=== PATIENT | male | born 2000 ===

== ENCOUNTER 2020-03-24 18:26 | Emergency (ER) | payer MEDICAID ==
[2020-03-24] MEDS ORDERED: Ibuprofen 600 MG Tab PO ONE (18:27)
[2020-03-24] MEDS ORDERED: Ibuprofen 600 MG Tab ONE (20:31)
--- NOTE | 2020-03-24 20:36 | EDM.PDOC ---
ED HPI GENERAL MEDICAL PROBLEM - General Chief Complaint: Back Pain or Injury Stated Complaint: SEVERE BACK PAIN, MAKING IT HARD TO BREATHE Time Seen by Provider: 03/24/20 19:45 - History of Present Illness INITIAL COMMENTS - FREE TEXT/NARRATIVE: ED with c/o low back pain today, denied injury, worse with movement, has tried tylenol, ice and heat without improvement. denies prior injury. No radiation of pain. Recent admission to [facility] for detox. Last ETOH Saturday. Admitted 1/2 gallon daily at least for past 2 weeks. No hx GI bleeds or stomach upset. Denied urinary sx. Middle Back Pain Score (Numeric/FACES): 9 - Related Data Allergies Allergy/AdvReac Type Severity Reaction Status Date / Time No Known Allergies Allergy Verified 03/24/20 20:14 Home Meds: Home Meds . [No Known Home Meds] 03/24/20 [History] Past Medical History - Past Health History Medical/Surgical History: Denies Medical/Surgical History Social & Family History - Tobacco Use Tobacco Use Status *Q: Never Tobacco User Second Hand Smoke Exposure: No - Recreational Drug Use Recreational Drug Use: Yes Drug Use in Last 12 Months: Yes Recreational Drug Type: Reports: Marijuana/Hashish ED ROS GENERAL - Review of Systems Review Of Systems: Comprehensive ROS is negative, except as noted in HPI. ED EXAM,LOWER BACK PAIN/INJURY - Physical Exam Exam: See Below Exam Limited By: No Limitations General Appearance: Alert, Mild Distress Eye Exam: Bilateral Eye: EOMI Throat/Mouth: Normal Inspection Head: Atraumatic Neck: Normal Inspection Respiratory/Chest: No Respiratory Distress, Lungs Clear, Normal Breath Sounds Cardiovascular: Normal Peripheral Pulses, Regular Rate, Rhythm GI/Abdominal: Normal Bowel Sounds, Soft, Non-Tender Back Exam: Full Range of Motion, Muscle Spasm, Paraspinal Tenderness (low lumbar), Other ( pain and spasm apear less to absent with distraction.). No: CVA Tenderness (L), CVA Tenderness (R), Vertebral Tenderness Extremities: Normal Inspection, Normal Range of Motion Neurological: Alert, Oriented x 3 Psychiatric: Anxious (frequent movment and repositioning, , hoodie pulled up over head., hyper reflexive responses.) Skin Exam: Warm, Dry, Intact, Normal Color Course - Vital Signs Last Recorded V/S: Last Vital Signs Temp 97.8 F 03/24/20 20:09 Pulse 79 03/24/20 20:09 Resp 18 03/24/20 20:09 BP 145/98 H 03/24/20 20:09 Pulse Ox 98 03/24/20 20:09 - Orders/Labs/Meds Meds: Medications Discontinued Medications Generic Name Dose Route Start Last Admin Trade Name Rachael PRN Reason Stop Dose Admin Ibuprofen Confirm 03/24/20 20:31 03/24/20 21:12 Motrin Administered 03/24/20 20:32 Not Given Dose 1,200 mg .ROUTE .STK-MED ONE Departure - Departure Time of Disposition: 20:29 Disposition: DC/Tfer to Inpt Rehab Fac 62 Condition: Good Clinical Impression: Back pain Qualifiers: Back pain location: low back pain Chronicity: acute Back pain laterality: bilateral Sciatica presence: without sciatica Qualified Code(s): M54.5 - Low back pain - Discharge Information *PRESCRIPTION DRUG MONITORING PROGRAM REVIEWED*: No *COPY OF PRESCRIPTION DRUG MONITORING REPORT IN PATIENT JEFF: No Instructions: Acute Back Pain, Adult Forms: ED Department Discharge Additional Instructions: avoid sudden movements light activity 24 hours increase fluids ibuprofen 600mg every 8 hours x 3 days follow up clinic if not improving encourage snack or taking ibuprofen with food to avoid stomach upset alternate heat and ice to low back as needed for discomfort Sepsis Event Note (ED) - Evaluation Sepsis Screening Result: No Definite Risk - Focused Exam Vital Signs: Vital Signs Temp Pulse Resp BP Pulse Ox 03/24/20 20:09 97.8 F 79 18 145/98 H 98
== END 2020-03-24 20:37 ==
LOC: DL.ED 18:26
DX: M54.5 Low back pain (principal)
CPT/HCPCS: 99282; 99284; A9270-GY